=== PATIENT | male | born 1985 | race American Indian/Alaskan Native ===

== ENCOUNTER 2016-04-26 19:04 | Emergency (ER) | payer BC ==
[2016-04-26 22:44] VITALS: BP 119/85
--- NOTE | 2016-04-26 22:51 | Emergency Department Report ---
HPI - General Chief Complaint: Upper Respiratory Infection Time Seen by Provider: 04/26/16 22:42 - HPI HPI: Patient is a 30-year-old male with a history of sinus allergies and no other past medical history who presents to the ED complaining of sinus congestion and cough 2 days. Patient describes cough as a dry nonproductive cough as intermittent throughout the day. Patient states he feels his sinuses are full of congestion. Patient admits clear runny nose. Patient denies fever/ chills/nausea/vomiting/abdominal pain/headache/blurred vision/any other problems ED Past Medical Hx - Medications Home Medications: Home Medications Medication Instructions Recorded Confirmed Last Taken Type Loratadine [Claritin] 10 mg PO DAILY #20 tablet 04/26/16 Unknown Rx Pseudoephedrine HCl [Nasal & Sinus 30 mg PO DAILY #20 tablet 04/26/16 Unknown Rx Decongestant] Triamcinolone Acetonide [Nasacort 1 - 2 spray NS BID #10.8 ml 04/26/16 Unknown Rx SPRAY] ED Review of Systems ROS: Stated complaint: SINUS CONGESTION Other details as noted in HPI Constitutional: denies: chills, fever Eyes: denies: eye pain, eye discharge, vision change ENT: denies: ear pain, throat pain Respiratory: denies: cough, shortness of breath, wheezing Cardiovascular: denies: chest pain, palpitations Endocrine: no symptoms reported. denies: increased hunger Gastrointestinal: denies: abdominal pain, nausea, vomiting, diarrhea, constipation, hematemesis Genitourinary: denies: urgency, dysuria, frequency, hematuria, testicular pain, testicular mass Musculoskeletal: denies: back pain, joint swelling, arthralgia Skin: denies: rash, lesions, pruritus Neurological: denies: headache, weakness, numbness, paresthesias, confusion, abnormal gait Psychiatric: denies: anxiety, depression, suicidal thoughts Hematological/Lymphatic: denies: easy bleeding, easy bruising, swollen glands Physical Exam - Physical Exam Vital Signs: Vital Signs 04/26/16 04/26/16 19:36 22:27 Temperature 98.2 F 97.8 F Pulse Rate 72 61 Respiratory 16 20 Rate Blood Pressure 121/74 Blood Pressure 119/85 [Right] O2 Sat by Pulse 98 97 Oximetry Physical Exam: GENERAL: Alert and oriented x3, no apparent distress, Normal Gait, atraumatic. HEAD: Head is normocephalic and a-traumatic. EYES: Extra ocular muscles are intact. Pupils are equal, round, and reactive to light and accommodation. EARS: symetrical, atraumatic, non tender, ear canal clear and moderate cerumen, tympanic membrance non inflamed. gross auditory nml bilaterally. NOSE: Nose symetrical, Nontender,Nares appeared normal. MOUTH:Mouth is well hydrated and without lesions. Tonsils nonerythematous or swollen, Uvula midline, Tongue not elevated. Mucous membranes are moist. Posterior pharynx clear, no exudate or lesions. Patent airways. NECK: Supple. Non edematous, No carotid bruits. No lymphadenopathy or thyromegaly. LUNGS: Symetrical with respiration, No wheezing, no rales or crackles, CTAB. HEART: S1, S2 present, regular rate and rhythm without murmur, no rubs, no gallops. EXTREMITIES/MUSCULOSKELETAL: No cyanosis, clubbing, rash, lesions or edema. Full ROM bilaterally. UE/LE Pulses 2+ bilaterally. NEUROLOGIC: No focal Deficit, Cranial nerves II through XII are grossly intact. No loss of sensation, PSYCHIATRIC: Mood is congruent with affect, denies suicidal or homicidal ideations. SKIN: Warm and dry, No lesions, No ulceration or induration present. ED Course Vital Signs 04/26/16 04/26/16 19:36 22:27 Temperature 98.2 F 97.8 F Pulse Rate 72 61 Respiratory 16 20 Rate Blood Pressure 121/74 Blood Pressure 119/85 [Right] O2 Sat by Pulse 98 97 Oximetry ED Medical Decision Making - Medical Decision Making 30 yo/male present with nasal congestion due to allergies. ED course: Patient is in no respiratory or acute distress. Patient to be discharged home with Nasacort and pseudoephedrine. Discussed the patient to follow up with primary care physician. Discussed with patient to continue [id number] medication for symptomatic relief. Patient verbally states he understands and will comply and follow-up. Critical care attestation.: If time is entered above; I have spent that time in minutes in the direct care of this critically ill patient, excluding procedure time. ED Disposition Clinical Impression: Sinusitis nasal Qualifiers: Sinusitis location: other Chronicity: subacute Qualified Code(s): J01.80 - Other acute sinusitis Disposition: DISCHARGED TO HOME OR SELFCARE Is pt being admited?: No Does the pt Need Aspirin: No Condition: Stable Instructions: Analgesic/Antihistamine/Decongestant (By mouth), Sinusitis (ED) Prescriptions: Loratadine [Claritin] 10 mg PO DAILY #20 tablet Pseudoephedrine HCl [Nasal & Sinus Decongestant] 30 mg PO DAILY #20 tablet Triamcinolone Acetonide [Nasacort SPRAY] 1 - 2 spray NS BID #10.8 ml Referrals: PRIMARY MD KADE [Primary Care Provider] - 3-5 Days SUE NOLASCO MD [Referring] - 3-5 Days HAY ASH MD [Referring] - 3-[address] [facility] [Outside] - 3-5 Days [facility] [Outside] - 3-5 Days [facility] [Outside] - 3-5 Days Forms: Work/School Release Form(ED) Time of Disposition: 22:56
== END 2016-04-26 22:56 | disposition home or self-care (01) ==
LOC: ED 19:04
DX: J01.80 Other acute sinusitis (principal)
CPT/HCPCS: 99282